=== PATIENT | male | born 1945 | race Caucasian/White ===

== ENCOUNTER 2016-07-29 09:28 | Inpatient (IN) | payer MEDICARE ==
[~2016-07-29] VITALS: Ht 188 cm; Wt 119.7 kg
[2016-07-29] MEDS ORDERED: HYDR-3580 PO (10:13)
[2016-07-29] MEDS ORDERED: DOXA1TAB43 PO (10:13)
[2016-07-29] MEDS ORDERED: INDO50CA PO (10:13)
[2016-07-29] MEDS ORDERED: GABA100C4 PO (10:13)
[2016-07-29] MEDS ORDERED: ROPI3TAB PO (10:13)
[2016-07-29] MEDS ORDERED: ATEN50TA7 PO (10:13)
[2016-07-29] MEDS ORDERED: POTA-163 PO (10:13)
[2016-07-29] MEDS ORDERED: AMLO2.5T PO (10:13)
[2016-08-16 06:26] VITALS: BP 157/80; PULSE 57; RESP 18; TEMP 98.1; O2SAT 100
[2016-08-16] MEDS: POVIDONE IODINE 7.5% SCRUB 118 ML BOTTLE TOP SCH ×2 (06:30→19:40)
[2016-08-16] MEDS ORDERED: TRANEXAMIC ACID IV SCH (06:30)
[2016-08-16] MEDS ORDERED: METOPROLOL TARTRATE 25 MG TAB PO PRN (06:30)
[2016-08-16] MEDS ORDERED: TRANEXAMIC PERI-ARTICULAR 3,000 MG/NS 100 ML P-ARTICULR SCH ×2 (06:30)
[2016-08-16] MEDS ORDERED: ROPIVACAINE PERI-ARTICULAR INJECTION. PERIART SCH ×5 (06:30)
[2016-08-16] MEDS: CHLORHEXIDINE GLUCONATE 4% SOLN 120 ML BTL TOP SCH ×2 (06:30→20:33)
[2016-08-16] MEDS ORDERED: EXPAREL PERI-ARTICULAR INJECTION (TOTAL VOL. 60 ML) P-ARTICULR SCH ×2 (06:30)
[2016-08-16] MEDS ORDERED: VANCOMYCIN 1000 MG/NS 250 ML (for <70 kg) IV SCH ×2 (06:30)
[2016-08-16] MEDS ORDERED: SODIUM CHLORIDE 0.9% IV SCH (06:30)
[2016-08-16] MEDS ORDERED: SODIUM CHLORID 0.9% 500 ML IV SCH (06:30)
[2016-08-16] MEDS ORDERED: ceFAZolin 2 GM PREMIX 50 ML IV SCH (06:30)
[2016-08-16] MEDS ORDERED: INSULIN HUMAN REGULAR 1,000 UNITS/10 ML VIAL SQ PRN (06:30)
[2016-08-16] MEDS: LACTATED RINGER'S 1000 ML IV SCH ×2 (06:37→20:33)
[2016-08-16] MEDS ORDERED: DEXAMETHASONE SOD PHOS 4 MG/ML VIAL IV SCH (07:00)
[2016-08-16] MEDS ORDERED: SODIUM CHLORIDE 0.9% FLUSH 5 ML FLUSH IVF PRN (07:30)
[2016-08-16] MEDS ORDERED: NALOXONE HCL 0.4 MG/ML AMP IV PRN (07:30)
[2016-08-16] MEDS ORDERED: ZOLPIDEM TARTRATE 5 MG TAB PO PRN (07:30)
[2016-08-16] MEDS ORDERED: oxyCODONE/ACETAMINOPHEN 5 MG/325 MG TAB PO PRN (07:30)
[2016-08-16] MEDS ORDERED: PERC10TA27 PO (07:30)
[2016-08-16] MEDS ORDERED: ALUMINUM/MAGNESIUM/SIMETH 30 ML CUP PO PRN (07:30)
[2016-08-16] MEDS ORDERED: diphenhydrAMINE HCL 50 MG/ML VIAL IV PRN (07:30)
[2016-08-16] MEDS ORDERED: ONDANSETRON HCL 4 MG/2 ML VIAL IVP PRN (07:30)
[2016-08-16] MEDS ORDERED: MAGNESIUM HYDROXIDE SUSP 30 ML CUP PO PRN (07:30)
[2016-08-16] MEDS ORDERED: Post-op Orders (for Pharmacy) MISC XX ONE (07:30)
[2016-08-16] MEDS ORDERED: BISACODYL 10 MG SUPP PR PRN (07:30)
[2016-08-16] MEDS ORDERED: APIX2.5T PO (07:31)
[2016-08-16] MEDS ORDERED: PILL SPLITTER OTHER PRN (08:00)
[2016-08-16] MEDS ORDERED: MIDAZOLAM HCL 2 MG/2 ML VIAL ONE ×2 (08:25→08:32)
[2016-08-16] MEDS ORDERED: ACETAMINOPHEN 1000 MG/100 ML VIAL IV ONE (08:25)
[2016-08-16] MEDS ORDERED: GENTAMICIN SULFATE 80 MG/2 ML VIAL ONE (08:33)
[2016-08-16] MEDS ORDERED: fentaNYL CITRATE 250 MCG/5 ML AMP ONE (08:57)
[2016-08-16] MEDS ORDERED: ePHEDrine/NS 25 MG/5 ML SYR IV ONE (09:00)
[2016-08-16] MEDS: amLODIPine BESYLATE 5 MG TAB PO SCH (09:00)
[2016-08-16] MEDS ORDERED: NEOSTIGMINE 3 MG/3 ML SYR IV ONE (09:00)
[2016-08-16] MEDS: SODIUM CHLORIDE 0.9% FLUSH 5 ML FLUSH IVF SCH ×2 (09:00→20:32)
[2016-08-16] MEDS ORDERED: DOXAZOSIN MESYLATE 4 MG TAB PO SCH (09:00)
[2016-08-16] MEDS: GABAPENTIN 100 MG CAP PO SCH ×3 (09:00→17:02)
[2016-08-16] MEDS: ATENOLOL/CHLORTHALIDONE 50/25 TAB PO SCH (09:00)
[2016-08-16] MEDS: POTASSIUM CHLORIDE 20 MEQ CONTROLLED RELEASE TAB PO SCH (09:00)
[2016-08-16] MEDS ORDERED: PROPOFOL 200 MG/20 ML AMP IV ONE (09:00)
[2016-08-16] MEDS ORDERED: ONDANSETRON HCL 4 MG/2 ML VIAL IV PUSH ONE (09:01)
[2016-08-16] MEDS ORDERED: LACTATED RINGER'S 1000 ML INJ 1,000 ML IV ONE (09:01)
[2016-08-16] MEDS ORDERED: DO NOT ADM ANY ANTICOAGULANT DRUGS XX PRN (11:18)
[2016-08-16] MEDS ORDERED: *morphine SULFATE 8 MG/ML PERIprocedure ONLY ONE ×3 (11:26→12:06)
[2016-08-16] MEDS: SODIUM CHLOR 0.9% 1000 ML INJ 1,000 ML IV SCH ×3 (11:50→20:32)
--- NOTE | 2016-08-16 12:22 | PD.ORT.PN ---
Subjective Post Op Day #: 0 Objective Vitals Vital Signs Date Time Temp Pulse Resp B/P Pulse Ox O2 Delivery O2 Flow Rate FiO2 08/16/16 11:45 59 12 145/68 96 Nasal Cannula 3 08/16/16 11:30 58 10 126/63 94 Nasal Cannula 3 08/16/16 11:15 97.9 65 14 139/63 95 Nasal Cannula 3 08/16/16 06:26 98.1 57 18 157/80 100 I/O 08/15/16 08/15/16 08/15/16 08/16/16 08/16/16 08/16/16 07:00 15:00 23:00 07:00 15:00 23:00 Intake Total 1300 ml Output Total 850 ml Balance 450 ml Intake Other 1300 ml Output Urine Total 750 ml Estimated Blood Loss 100 ml Assessment & Plan Assessment and Plan s/p R TKA wbat daily dressing changes lovenox - d/c on Eliquis rx in chart d/c planning home with [facility] vs snf f/up dr. biswas 2 weeks Ankit Lima Aug 16, 2016 12:22
--- NOTE | 2016-08-16 12:23 | HHI.DCPOC ---
Discharge Care Plan Diagnosis: (1) Primary localized osteoarthrosis, lower leg Your Health Problems Are: Difficulty with ADL Goals to Promote Your Health * To prevent worsening of your condition and complications * To maintain your health at the optimal level Directions to Meet Your Goals Take your medications as prescribed Follow your dietary instruction Follow activity as directed Keep your appointments as scheduled Take your immunizations and boosters as scheduled If your symptoms worsen call your PCP, if no PCP go to Urgent Care Center or Emergency Room Smoking is Dangerous to Your Health. Avoid second hand smoke Call the 24-hour hour crisis hotline for domestic abuse at Ankit Lima Aug 16, 2016 12:23
--- NOTE | 2016-08-16 12:24 | HHI.FF ---
Face to Face Verification Diagnosis: (1) Primary localized osteoarthrosis, lower leg Physical Therapy Gait training, Safety evaluation, Transfer training, bed to chair Knee: Total knee, Protocol: Right, Full weight bearing Right LE Weight Bearing: WB as tolerated Nursing RN: 3 days/week x 2 weeks Nursing: Dressing changes Dressing Changes: Daily dressing change I have seen patient Yobani Dickson on 08/16/16. My clinical findings support the need for the requested home health care services because: Limited ability to care for self High risk of falls I certify that my clinical findings support that this patient is homebound because: Post-op weakness Unsteady gait/balance Ankit Lima Aug 16, 2016 12:24
[2016-08-16] MEDS ORDERED: MISC-163 (12:25)
[2016-08-16] MEDS ORDERED: CPMMACHINE (12:25)
[2016-08-16] MEDS ORDERED: WALKER WHEELS/F1 MIS (12:25)
[2016-08-16] MEDS ORDERED: BUPIVACAINE LIPOSOME PF 1.3% 20 ML VIAL ONE (12:26)
--- NOTE | 2016-08-16 13:47 | RADRPT ---
EXAM DATE/TIME: 08/16/2016 11:28 [facility] COMPARISON: No previous studies available for comparison. INDICATIONS : Post-op total right knee arthroplasty. MEDICAL HISTORY : Hypertension. SURGICAL HISTORY : Total knee replacement, left. ENCOUNTER: Initial ACUITY: 1 day PAIN SCORE: 8/10 LOCATION: Left knee. FINDINGS: Total knee arthroplasty is in good position. Alignment is anatomic. A fracture is not appreciated. Minimal air is in the joint space. CONCLUSION: Anatomic alignment without fracture. Syed Mason MD FACR on August 16, 2016 at 12:39 Board Certified Radiologist. This report was verified electronically.
[2016-08-16 13:55] VITALS: BP 149/72; PULSE 58; RESP 18; TEMP 96.4; O2SAT 100
[2016-08-16] MEDS: oxyCODONE/ACETAMINOPHEN 5 MG/325 MG TAB PO PRN ×2 (17:02→20:49)
--- NOTE | 2016-08-16 17:28 | PD.CONS ---
HPI Service [facility] Hospitalists Consult Requested By Dr. Ankit Jaramillo Reason for Consult Medical Management Primary Care Physician Vasquez Agosto M.D. Diagnoses: History of Present Illness Mr. Dickson is a pleasant 71 y/o male with HTN, MAGGIE, RLS, BPH and osteoarthritis. Pt was admitted to on 08/16/16 for elective right total knee arthroplasty. Pt had a left knee arthroplasty in [address] Jaramillo previously. [facility] Hospitalist team was consulted to help manage the pt chronic medical issues. Pt complains of spasms in the right leg which are causing some discomfort. He states that he has severe RLS and pt requests to take his Requip early this evening. Pt blood pressure is slightly elevated likely secondary to pain. Home medications have been resumed. His has brought his CPAP from home for this evening as well. Review of Systems Constitutional: DENIES: Fever, Chills Eyes: DENIES: Vision loss Ears, nose, mouth, throat: DENIES: Hearing loss Respiratory: DENIES: Shortness of breath Cardiovascular: DENIES: Chest pain, Palpitations Gastrointestinal: DENIES: Abdominal pain, Nausea, Vomiting Genitourinary: DENIES: Hematuria Musculoskeletal: COMPLAINS OF: Joint pain Integumentary: DENIES: Rash Neurologic: DENIES: Headache Past Family Social History Past Medical History Osteoarthritis BPH Anxiety Sinus bradycardia GERD HTN RLS MAGGIE Past Surgical History Tonsillectomy with Adenoidectomy Vasectomy Left total knee arthroplasty Reported Medications -Potassium Chloride ER 20 Meq PO DAILY -Gabapentin 100 Mg Cap 100 Mg PO TID PRN -Indomethacin 50 Mg Cap 50 Mg PO TID PRN Take with food, milk, or antacids to decrease stomach adverse effects. 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 HEENT: Atraumatic. Normocephalic. No temporal or scalp tenderness. No scleral icterus. Airway patent. NECK: Trachea midline, supple, nontender. CARDIO: Regular RESP: CTA bilaterally. No wheezes, rales, or rhonchi. ABD: +BS, soft, non-tender, nondistended. EXT: Right knee bandages are c/d/i. NEURO: Awake and alert. Motor and sensory grossly within normal limits. Normal speech. Laboratory Laboratory Tests Test 08/16/16 06:35 Blood Type A POSITIVE Antibody Screen NEGATIVE Imaging Last Impressions Knee X-Ray 08/16/16 0311 Signed Impressions: Service Date/Time: Tuesday, August 16, 2016 11:28 - CONCLUSION: Anatomic alignment without fracture. Syed Mason MD FACR Assessment and Plan Problem List: (1) Primary localized osteoarthrosis, lower leg Status: Chronic Plan: - Pt s/p right total knee arthroplasty on 08/16/[address] Jaramillo - Post-op pain control per Ortho - PT daily - IS - Constipation precautions - DVT prophylaxis (2) Hypertension Status: Chronic Plan: - Home meds resumed - Monitor (3) BPH (benign prostatic hyperplasia) Status: Chronic Plan: - Home meds resumed (4) Restless leg syndrome Status: Chronic Plan: - Home meds resumed Assessment and Plan Patient examined. Assessment and plan formulated with Naina Johnson PA-C. I agree with the above. Problem Qualifiers (1) Primary localized osteoarthrosis, lower leg: Qualified Code: M17.11 - Primary localized osteoarthrosis, lower leg, right Naina Johnson Aug 16, 2016 17:28 Julián Galvan DO Aug 18, 2016 11:08
[2016-08-16] MEDS: DOXAZOSIN MESYLATE 4 MG TAB PO SCH (20:31)
[2016-08-16 20:56] VITALS: BP 150/69; PULSE 66; RESP 18; TEMP 97.4; O2SAT 96
[2016-08-16] MEDS: HYDROmorphone HCL PF 2 MG/ML VIAL IV PRN (23:20)
[2016-08-17 00:23] VITALS: BP 148/75; PULSE 62; RESP 22; TEMP 96.5; O2SAT 96
[2016-08-17] MEDS: oxyCODONE/ACETAMINOPHEN 5 MG/325 MG TAB PO PRN ×6 (01:15→22:21)
[2016-08-17] MEDS: HYDROmorphone HCL PF 2 MG/ML VIAL IV PRN ×5 (02:33→20:55)
[2016-08-17 04:00] VITALS: BP 159/76; PULSE 69; RESP 20; TEMP 97; O2SAT 96
[2016-08-17 07:16] LABS: HEMATOCRIT 27.6 % (39.0-51.0); MEAN CELL VOLUME 88.2 FL (80.0-100.0); MEAN CORPUSCULAR HEMOGLOBIN 31.4 PG (27.0-34.0); MEAN CORPUSCULAR HGB CONC 35.5 % (32.0-36.0); PLATELET COUNT 135 TH/MM3 (150-450); RED BLOOD COUNT 3.12 MIL/MM3 (4.50-5.90); RED CELL DISTRIBUTION WIDTH 12.9 % (11.6-17.2); REVIEW FLAG FINAL; WHITE BLOOD COUNT 8.1 TH/MM3 (4.0-11.0)
[2016-08-17 07:17] LABS: BICARBONATE 28.9 MEQ/L (21.0-32.0); POTASSIUM 3.4 MEQ/L (3.5-5.1)
--- NOTE | 2016-08-17 07:36 | PD.ORT.PN ---
Subjective Subjective Remarks pt complains of post op pain, no SOB, no chest pain Objective Vitals Vital Signs Date Time Temp Pulse Resp B/P Pulse Ox O2 Delivery O2 Flow Rate FiO2 08/17/16 04:00 97.0 69 20 159/76 96 08/17/16 00:23 96.5 62 22 148/75 96 08/16/16 20:56 97.4 66 18 150/69 96 08/16/16 13:55 96.4 58 18 149/72 100 08/16/16 13:55 96.4 58 18 149/72 100 08/16/16 13:00 56 12 152/65 97 Nasal Cannula 2 08/16/16 12:15 98.2 57 12 139/58 97 Nasal Cannula 2 08/16/16 12:00 60 14 142/66 96 Nasal Cannula 3 08/16/16 11:45 59 12 145/68 96 Nasal Cannula 3 08/16/16 11:30 58 10 126/63 94 Nasal Cannula 3 08/16/16 11:15 97.9 65 14 139/63 95 Nasal Cannula 3 I/O 08/16/16 08/16/16 08/16/16 08/17/16 08/17/16 08/17/16 07:00 15:00 23:00 07:00 15:00 23:00 Intake Total 1400 ml 1560 ml 1948 ml Output Total 925 ml 800 ml 1600 ml Balance 475 ml 760 ml 348 ml Intake Oral 960 ml 950 ml IV Total 100 ml 600 ml 998 ml Other 1300 ml Output Urine Total 825 ml 800 ml 1600 ml Estimated Blood Loss 100 ml # Bowel Movements 0 0 Imaging Last 24 hours Impressions Knee X-Ray 08/16/16 0727 Signed Impressions: Service Date/Time: Tuesday, August 16, 2016 11:28 - CONCLUSION: Anatomic alignment without fracture. Syed Mason MD FACR Objective Remarks seen by Dr. Bill Ruano right knee dressings dry and intact +NVI no calf tenderness Assessment & Plan Assessment and Plan POD #1 s/p R TKA wbat daily dressing changes lovenox - d/c on Eliquis rx in chart d/c planning home with [facility] vs snf f/up dr. biswas 2 weeks Kavita Estrada Aug 17, 2016 07:09
[2016-08-17 08:21] VITALS: BP 159/74; PULSE 72; RESP 17; TEMP 96.1; O2SAT 96
[2016-08-17] MEDS: POTASSIUM CHLORIDE 20 MEQ CONTROLLED RELEASE TAB PO SCH (08:41)
[2016-08-17] MEDS: ATENOLOL/CHLORTHALIDONE 50/25 TAB PO SCH (08:42)
[2016-08-17] MEDS: GABAPENTIN 100 MG CAP PO SCH ×3 (08:42→18:32)
[2016-08-17] MEDS: amLODIPine BESYLATE 5 MG TAB PO SCH (08:42)
[2016-08-17] MEDS: ENOXAPARIN SODIUM 40 MG/0.4 ML SYRINGE SQ SCH (08:43)
[2016-08-17] MEDS: SODIUM CHLORIDE 0.9% FLUSH 5 ML FLUSH IVF SCH ×2 (08:44→20:54)
[2016-08-17 12:55] VITALS: BP 130/64; PULSE 62; RESP 16; TEMP 97; O2SAT 97
[2016-08-17] MEDS: SODIUM CHLOR 0.9% 1000 ML INJ 1,000 ML IV SCH ×2 (13:27→20:54)
[2016-08-17] MEDS ORDERED: POTASSIUM CHLORIDE 20 MEQ CONTROLLED RELEASE TAB PO ONE (15:45)
[2016-08-17 16:00] VITALS: BP 143/70; PULSE 67; RESP 16; TEMP 99; O2SAT 97
[2016-08-17 20:04] VITALS: BP 163/78; PULSE 77; RESP 18; TEMP 96.7; O2SAT 97
[2016-08-17] MEDS: DOCUSATE SODIUM 100 MG CAP PO SCH (20:53)
[2016-08-17] MEDS: MULTIVITAMINS/MINERALS THERAPEUTIC TAB PO SCH (20:53)
[2016-08-17] MEDS: DOXAZOSIN MESYLATE 4 MG TAB PO SCH (20:53)
[2016-08-18 00:08] VITALS: BP 141/66; PULSE 75; RESP 18; TEMP 98.5; O2SAT 95
[2016-08-18] MEDS: CHLORHEXIDINE GLUCONATE 4% SOLN 120 ML BTL TOP SCH (02:53)
[2016-08-18] MEDS: LACTATED RINGER'S 1000 ML IV SCH (02:53)
[2016-08-18] MEDS: oxyCODONE/ACETAMINOPHEN 5 MG/325 MG TAB PO PRN ×3 (03:04→11:15)
[2016-08-18] MEDS: POVIDONE IODINE 7.5% SCRUB 118 ML BOTTLE TOP SCH (03:31)
[2016-08-18 07:31] VITALS: BP 134/68; PULSE 71; RESP 18; TEMP 96.9; O2SAT 94
--- NOTE | 2016-08-18 07:36 | PD.ORT.PN ---
Subjective Subjective Remarks pt doing better with his knee Objective Vitals Vital Signs Date Time Temp Pulse Resp B/P Pulse Ox O2 Delivery O2 Flow Rate FiO2 08/18/16 00:08 98.5 75 18 141/66 95 08/17/16 20:04 96.7 77 18 163/78 97 08/17/16 20:00 Room Air 08/17/16 16:00 99.0 67 16 143/70 97 08/17/16 12:55 97.0 62 16 130/64 97 08/17/16 08:45 Room Air 08/17/16 08:21 96.1 72 17 159/74 96 I/O 08/17/16 08/17/16 08/17/16 08/18/16 08/18/16 08/18/16 07:00 15:00 23:00 07:00 15:00 23:00 Intake Total 1948 ml 720 ml 720 ml 360 ml Output Total 1600 ml 750 ml 550 ml Balance 348 ml 720 ml -30 ml -190 ml Intake Oral 950 ml 720 ml 720 ml 360 ml IV Total 998 ml 0 ml Output Urine Total 1600 ml 750 ml 550 ml # Voids 3 # Bowel Movements 0 0 0 Result Diagram: 08/17/16 0607 08/17/16 0607 Imaging Last 24 hours Impressions Knee X-Ray 08/16/16726 Signed Impressions: Service Date/Time: Tuesday, August 16, 2016 11:28 - CONCLUSION: Anatomic alignment without fracture. Syed Mason MD FACR Objective Remarks seen by Dr. Bill Ruano right knee dressings dry and intact +NVI no calf tenderness Assessment & Plan Assessment and Plan POD #2 s/p R TKA wbat daily dressing changes lovenox - d/c on Eliquis rx in chart discharge home today, orthopedically stable f/up dr. biswas 2 weeks Kavita Estrada Aug 18, 2016 07:36
[2016-08-18] MEDS: GABAPENTIN 100 MG CAP PO SCH (07:42)
[2016-08-18] MEDS: amLODIPine BESYLATE 5 MG TAB PO SCH (07:42)
[2016-08-18] MEDS: MULTIVITAMINS/MINERALS THERAPEUTIC TAB PO SCH (07:42)
[2016-08-18] MEDS: ATENOLOL/CHLORTHALIDONE 50/25 TAB PO SCH (07:42)
[2016-08-18] MEDS: DOCUSATE SODIUM 100 MG CAP PO SCH (07:42)
[2016-08-18] MEDS: POTASSIUM CHLORIDE 20 MEQ CONTROLLED RELEASE TAB PO SCH (07:43)
[2016-08-18 08:01] LABS: HEMATOCRIT 27.7 % (39.0-51.0); MEAN CORPUSCULAR HEMOGLOBIN 30.9 PG (27.0-34.0); MEAN CORPUSCULAR HGB CONC 35.1 % (32.0-36.0); PLATELET COUNT 138 TH/MM3 (150-450); RED BLOOD COUNT 3.14 MIL/MM3 (4.50-5.90); REVIEW FLAG FINAL; WHITE BLOOD COUNT 5.7 TH/MM3 (4.0-11.0)
[2016-08-18 08:32] LABS: BICARBONATE 29.7 MEQ/L (21.0-32.0); POTASSIUM 3.5 MEQ/L (3.5-5.1)
[2016-08-18] MEDS: ENOXAPARIN SODIUM 40 MG/0.4 ML SYRINGE SQ SCH (10:00)
[2016-08-18] MEDS ORDERED: PERC10TA27 PO (11:17)
--- NOTE | 2016-08-18 22:40 | MP ---
cc: HEVER GARCIA DATE OF SURGERY 08/16/2016 PREOPERATIVE DIAGNOSIS Right knee osteoarthritis. POSTOPERATIVE DIAGNOSIS Right knee osteoarthritis. PROCEDURE Right total knee arthroplasty. SURGEON Dr. Hever Garcia CREATIVE SERVICES WRITER MARIELLE Bowling ANESTHESIA General with a adductor canal block. ESTIMATED BLOOD LOSS Less than 50 cc COMPLICATIONS None. TOURNIQUET TIME 51 minutes at 250 mmHg. IMPLANTS USED DePuy Attune size 8 posterior stabilized femoral component, size 8 rotating platform tibia baseplate, size 6 mm polyethylene tibial insert, size 41 patella. JUSTIFICATION The patient is a 71-year-old male who has history of severe end-stage osteoarthritis involving the right knee. He has severe disabling pain with standing, walking, ambulation, weightbearing activities, even severe pain at rest. He has failed greater than 3 months of nonoperative conservative treatment to include medication therapy, injections, ambulatory assisted aids, , activity modification. The patient is not overweight. X-rays of the right knee reveal severe end-stage osteoarthritis with [id number] joint space narrowing, subchondral sclerosis, subchondral cyst, osteophyte formation and varus deformity. The patient was counseled as to the risks, benefits and alternatives to a total knee arthroplasty. The risks were discussed which include but not limited to anesthesia, bleeding, infection, damage to nerves and blood vessels, pain, stiffness, failure of components, blood clots, pulmonary embolism and even . The patient's pain was severe and treatments had been unsuccessful. He understood the risks and did wish to proceed surgery. PROCEDURE IN DETAILS Written consent was obtained. The patient was identified by name, taken to the operating room and placed supine on the operating table. General anesthesia was administered as well as 2 grams of IV Ancef and 1 gram of IV vancomycin. A well-padded tourniquet placed on the right thigh. The right lower extremity prepped and draped using as isopropyl alcohol, Hibiclens solution and Chloraprep solution. An Esmarch bandage was used to exsanguinate the right lower extremity and tourniquet inflated to 250 mmHg. A longitudinal incision was made over the anterior aspect of right knee and medial parapatellar arthrotomy was performed. The patella was everted. A patellar resection guide was used to resect 9.5 mm of patella. The size 41 mm guide was placed. Three drills were placed. The 41 mm trial fit well. Attention turned to the femur where an intramedullary guide faith was placed. The distal femoral cutting guide was placed and an oscillating saw was used to resect 11 mm of distal femur, 5 degrees off the anatomic valgus axis alignment. Attention was turned to the tibia where extramedullary tibial guide was used to resect 5 mm off the lowest portion of the medial tibial plateau. A 5 mm spacer block showed full extension. Attention was turned back to the femur where the AP sizing block measured a size 8 with 3 degree anterior reference. guide was used to pin a size [address] The anterior personnel supervisor chamfer cuts were performed. A size 8 PCL box guide was pinned in place. The PCL was boxed with an oscillating saw. The medial and lateral meniscus remnants were removed as well as bone and soft tissue debris from the personnel supervisor portion of the knee. A size 8 tibial base was pinned in place. The tibia was drilled. The construct was evaluated and cemented in place. With a 6-mm tibial insert the leg achieved full extension to 0 degrees and flexion to 140. No evidence of tibial lift-off. Varus-valgus balance appeared appropriate and symmetric. I did perform a partial lateral release to allow for centralization of the patella during flexion/extension. The tourniquet was deflated. Bovie cautery was used for hemostasis. The arthrotomy incision was closed with #1 Vicryl suture, subcutaneous layer with 2-0 Vicryl suture. Skin was closed Dermabond. Sterile dressings were applied. The patient tolerated the procedure well with no intraoperative noted. Lev Lima physician assistant banquet manager, certified was present during the entire procedure to include patient positioning and the procedure itself. The medical necessity of physician assistant banquet manager was indicated in this case due to complexity of the procedure. He assisted with appropriate manipulation of the leg and also retraction of muscle, tendon, bone and neurovascular structures. He assisted with both bone resection and implantation of the prosthetic replacement. Hever Garcia MD JWCamilla/VIKTOR /10:54 AM /10:13 PM
--- NOTE | 2016-08-26 15:56 | MD ---
cc: HEVER JARAMILLO ADMISSION DATE: 08/16/2016 DISCHARGE DATE: 08/18/2016 ADMITTING DIAGNOSIS Severe degenerative osteoarthritis, right knee. DISCHARGE DIAGNOSIS Severe degenerative osteoarthritis, right knee. HISTORY OF PRESENT ILLNESS Mr. Dickson is a 71-year-old male who presented to the orthopedic clinic of [place] for evaluation by Dr. Hever Jaramillo regarding his severe and progressive right knee pain. The patient states the pain has been progressive for greater than 1 year duration for which he has been treated for this ailment. He notes it is a constant severe aching sensation that is aggravated by weightbearing activities. He has no alleviating factors at this point in time, although he states in the past he has tried medications, bracing, physical therapy, home exercise program and multiple injections without long-lasting relief of symptoms. He does have x-ray evidence of severe degenerative osteoarthritis of the right knee. While in the office the patient was counseled on his diagnosis and treatment options, risks, benefits, indications were all discussed in great detail. The patient did elect to proceed with surgical intervention to include a right total knee arthroplasty. DATE OF SURGERY: 08/16/2016, right total knee arthroplasty. POSTOP Postop after surgery the patient was admitted to [facility] where he received appropriate medical management and pain control, DVT prophylaxis as well as physical therapy. DISCHARGE Once being discharged from the hospital the patient is cleared to go home where he is to receive home health care and home physical therapy. He is in stable condition. He can weight-bear as tolerated. He is to receive daily dressing changes and has been instructed on appropriate wound care management. The patient has been provided prescriptions for pain control as well as DVT prophylaxis medication. He has also been provided followup appointment to see Dr. Hever Jaramillo in the office in approximately 2 weeks from date of surgery. The patient has asked appropriate questions which have been answered. The patient has been discharged. Dictated by: MARIELLE Hodgson MD KATELIN Tyson/MYNOR /8:14 AM /3:56 PM
[2016-12-31] MEDS ORDERED: POTA1TAB4 PO (14:05)
[2016-12-31] MEDS ORDERED: IBUP-1129 (14:05)
[2016-12-31] MEDS ORDERED: ASPI81CH37 CHEW (14:05)
[2016-12-31] MEDS ORDERED: CHLORO250 PO (14:05)
[2016-12-31] MEDS ORDERED: OMEP20TA PO (14:05)
== END 2016-08-18 12:17 | disposition home health service (06) | DRG 470 ==
LOC: HSDI 08-16 05:27 → N06A 08-16 13:47
PROVIDERS: ADMIT Orthopaedic Surgery Sports Medicine; ATTEND Orthopaedic Surgery Sports Medicine
PROC: 0QRD0JZ Replacement of Right Patella with Synthetic Substitute, Open Approach (ICD-10-PCS; 2016-08-16)
PROC: 0SRC0J9 Replacement of Right Knee Joint with Synthetic Substitute, Cemented, Open Approach (ICD-10-PCS; principal; 2016-08-16 08:59)
DX: M17.11 Unilateral primary osteoarthritis, right knee (principal); I10 Essential (primary) hypertension; G47.33 Obstructive sleep apnea (adult) (pediatric); M25.861 Other specified joint disorders, right knee; M25.761 Osteophyte, right knee; G25.81 Restless legs syndrome; N40.0 Benign prostatic hyperplasia without lower urinary tract symptoms; K21.9 Gastro-esophageal reflux disease without esophagitis; E66.9 Obesity, unspecified; Z68.32 Body mass index [BMI] 32.0-32.9, adult; F41.9 Anxiety disorder, unspecified; Z87.891 Personal history of nicotine dependence; Z96.652 Presence of left artificial knee joint; Z91.013 Allergy to seafood
CPT/HCPCS: 73560; 80048; 85027; 86850; 86900; 86901; 94150; C1776; C9290; J0131; J0690; J1100; J1170; J1580; J1650; J2250; J2270; J2405; J2710; J3010; J3370; J7030; J7050; J7120; L1830

== ENCOUNTER → 2016-07-29 | Outpatient (CLI) | payer MEDICARE ==
[~2016-07-29] MED LIST: AMLO2.5T PO; APIX2.5T PO; ASPI81CH37 CHEW; ATEN1TAB71 PO; ATEN50TA7 PO; CELE100C PO; CHLORO250 PO; CPMMACHINE; DOXA1 PO; DOXA1TAB43 PO; GABA100C4 PO; GABA300C3 PO; HYDR-3580 PO; IBUP-1129; INDO50CA PO; KLOR20TA6 PO; MISC-163; NORC7.5T PO; OMEP20TA PO; PERC10TA27 PO; POTA-163 PO; POTA1TAB4 PO; ROPI1TAB72 PO; ROPI3TAB PO; WALKER WHEELS/F1 MIS; ZOLP5TAB3 PO
[2016-07-29 10:03] LABS: BASOPHIL % 0.6 % (0.0-2.0); EOSINOPHIL # 0.1 TH/MM3 (0-0.4); EOSINOPHIL % 2.1 % (0.0-4.0); HEMATOCRIT 35.6 % (39.0-51.0); HEMO FLAGS DIFF FINAL; LYMPH % 11.9 % (9.0-44.0); LYMPHOCYTE # 0.6 TH/MM3 (1.0-4.8); MEAN CELL VOLUME 87.7 FL (80.0-100.0); MEAN CORPUSCULAR HEMOGLOBIN 30.6 PG (27.0-34.0); MEAN CORPUSCULAR HGB CONC 34.9 % (32.0-36.0); NEUT % 77.4 % (16.0-70.0); PLATELET COUNT 158 TH/MM3 (150-450); RED BLOOD COUNT 4.06 MIL/MM3 (4.50-5.90); RED CELL DISTRIBUTION WIDTH 13.4 % (11.6-17.2); WHITE BLOOD COUNT 5.2 TH/MM3 (4.0-11.0)
[2016-07-29 10:07] LABS: APTT (PATIENT) 27.1 SEC (24.3-30.1); PROTHROMBIN TIME - PATIENT 10.5 SEC (9.8-11.6)
[2016-07-29 10:20] LABS: ANION GAP 6 MEQ/L (5-15); AST (GOT) 18 U/L (15-37); BLOOD UREA NITROGEN 22 MG/DL (7-18); CHLORIDE 94 MEQ/L (98-107); GLOMERULAR FILTRATION RATE 65 ML/MIN (>89); GLUCOSE,FASTING 107 MG/DL (74-99); POTASSIUM 4.2 MEQ/L (3.5-5.1); SODIUM (NA) 131 MEQ/L (136-145)
[2016-07-29 10:23] LABS: ALKALINE PHOSPHATASE 86 U/L (45-117); ALT (GPT) 33 U/L (12-78); TOTAL BILIRUBIN ADULT 0.4 MG/DL (0.2-1.0)
[2016-07-29 10:24] LABS: WESTERGREN SEDIMENTATION RATE 14 mm/hr (0-20)
--- NOTE | 2016-07-29 11:19 | RADRPT ---
EXAM DATE/TIME: 07/29/2016 11:00 [facility] COMPARISON: CHEST PA & LAT, November 05, 2013, 9:26. INDICATIONS : Evaluate heart and lungs for pre-op clearance. MEDICAL HISTORY : Hypertension. SURGICAL HISTORY : None. ENCOUNTER: Initial ACUITY: 1 day PAIN SCORE: 0/10 LOCATION: chest FINDINGS: The cardiac silhouette is enlarged in transverse diameter. The lungs are free of acute parenchymal op acity. No effusions are identified. There is eventration of the right hemidiaphragm. There is promine nce of the aortic knob is with calcification characteristic of atherosclerotic vascular disease. Ther e are flowing osteophytes along the anterior aspect of several thoracic vertebral bodies compatible w ith diffuse idiopathic skeletal hyperostosis (DISH). CONCLUSION: 1. Cardiomegaly. No acute pulmonary disease. Buddy Lloyd MD on July 29, 2016 at 11:16 Board Certified Radiologist. This report was verified electronically.
[2016-07-29 11:41] LABS: BLOOD, URINE NEG (NEG); GLUCOSE,URINE NEG (NEG); KETONE, URINE NEG (NEG); NITRITE,URINE NEG (NEG); PH, URINE 6.5 (5.0-8.5); URINE COLOR LIGHT-YELLOW (YELLW/STRAW)
[2016-07-29 11:42] LABS: COMMENT (UR) CULT NOT INDICATED; CULTURE IF INDICATED CULT NOT INDICATED
--- NOTE | 2016-07-29 19:18 | EKG ---
Date Performed: 07/29/2016 Time Performed: 09:44:44 PTAGE: 71 years EKG: SINUS BRADYCARDIA WITH FIRST DEGREE AV BLOCK MODERATE INTRAVENTRICULAR CONDUCTION DELAY ABN ORMAL ECG NO PREVIOUS TRACING DOCTOR: Jose Cardoza Interpretating Date/Time 07/29/2016 19:17:18
== END ==
LOC: CPRE 10:39
PROVIDERS: ATTEND Orthopaedic Surgery Sports Medicine
DX: Z01.810 Encounter for preprocedural cardiovascular examination (principal); Z01.812 Encounter for preprocedural laboratory examination; M17.11 Unilateral primary osteoarthritis, right knee; M25.50 Pain in unspecified joint; R00.1 Bradycardia, unspecified; I44.0 Atrioventricular block, first degree; Z79.01 Long term (current) use of anticoagulants
CPT/HCPCS: 36415; 71020; 80053; 81001; 85025; 85610; 85652; 85730; 93005